=== PATIENT | female | born 1960 | race Caucasian/White ===

== ENCOUNTER → 2017-01-25 | Outpatient (CLI) | payer OTHER | LOC: FIMAGING 07:34 | DX: Z12.31 Encounter for screening mammogram for malignant neoplasm of breast (principal) | CPT/HCPCS: G0202 ==

== ENCOUNTER 2017-07-27 12:51 | Emergency (ER) | payer OTHER ==
--- NOTE | 2017-07-27 13:44 | EDPHY ---
General Time Seen by Provider: 07/27/17 13:31 Narrative: CHIEF COMPLAINT: Fall, knee pain, wrist pain HISTORY OF PRESENT ILLNESS: Patient presents with complaints of left knee pain right wrist pain after fall. She was walking here work today when "my knee buckled, and I fell to the ground." She reports striking her left knee on the ground a bent position. She also brace herself with her right hand and wrist. She complains of moderate to severe pain the left knee with palpation ambulation. She complains of mild pain in the right wrist. No numbness, tingling or weakness. No head strike or loss consciousness. No injury or pain elsewhere. No other associated complaints or modifying factors DOMINANT EXTREMITY: Right-hand dominant ESTABLISHED ORTHOPEDIST: None currently REVIEW OF SYSTEMS: Ten systems reviewed and are negative unless otherwise noted in the HPI PAST MEDICAL HISTORY: Hypertension, orthopedic injuries PAST SURGICAL HISTORY: No recent surgeries SOCIAL HISTORY: Nonsmoker. Lives and works here independently. FAMILY HISTORY: Noncontributory EXAMINATION General Appearance: Alert, no distress Cardiovascular: Left DP and PT pulses 2+. Good signs of perfusion lower extremity. Neurological: A&O, sensory symmetric, strength symmetric Skin: Warm and dry, no rash no petechiae. No purpura. No puncture Extremities: Tenderness of the left knee throughout the joint line. There is negative Jarett and negative drawer test. No instability with valgus or varus stress. No deformity. No patella tenderness. Passive range of motion is symmetric to the right. Right wrist tenderness throughout with no snuffbox tenderness. There is no deformity. Range of motion of the right wrist is symmetric to the left. Psychiatric: Mood and affect normal DIFFERENTIAL DIAGNOSES: Including but not limited to knee sprain, patellar fracture, ACL injury, meniscal injury, wrist sprain, restrained, scaphoid injury MDM: 1:35 p.m. Acute injury involving the left knee and the right wrist. Minimal bony tenderness in each area but she does have some pain with ambulation. X-rays of the wrist and knee were ordered prior to my examination and are currently being performed. No acute distress. Neuro intact distally. 2:20 p.m. X-ray of the right wrist is negative for any acute findings. X-ray of the knee reveals a possible medial tibial plateau fracture. She does have pain and mechanism that could provided this, thus I have ordered CT scan to delineate. I have also ordered Velcro thumb spica for the right wrist to protect the scaphoid. Have re-evaluated the patient discussed this with her and she agrees to proceed. 3:15 p.m. Notified by radiologist Dr. Angelo. CT scan does reveal a posterior tibial plateau fracture with some displacement. I will consult Orthopedics. I have notified the patient of the finding. 3:30 p.m. Case discussed with orthopedist Dr. Novak. He has evaluated the CT scan. Based on the patient's history he would recommend immobilizer with toe-touch minimal weight-bearing as tolerated. Outpatient follow-up early next week. I have notified the patient of this. She will be discharged home with a knee immobilizer. She has crutches at home. She will also follow up with her work comp clinic as this did occur while at work. She has requested tylenol 3 and does not want any stronger narcotic than this. She is discharged in stable condition, neurovascular intact. SUPERVISION: This patient was independently evaluated without direct involvement of or examination by the attending physician. ED Precautions: Worsening pain. Erythema, edema, cyanosis, pallor, paresthesia or anesthesia. - Diagnostics Imaging Results: Imaging Impressions Knee X-Ray 07/27/17 13:11 Impression: Possible posterior medial tibial plateau fracture. If clinically indicated consider CT. Results called to Dr. Aiken. Wrist X-Ray 07/27/17 13:11 Impression: There is no acute fracture identified. If there is a high clinical concern, however, regarding an occult carpal fracture, conservative management and short-term repeat radiographic follow-up in 7-14 days is suggested. - History Smoking Status: Never smoked - Objective Vital Signs: Initial Vital Signs Temperature (C) 98.1 F 07/27/17 12:56 Heart Rate 85 07/27/17 12:56 Respiratory Rate 17 07/27/17 12:56 Blood Pressure 174/86 H 07/27/17 12:56 O2 Sat (%) 96 07/27/17 12:56 O2 Delivery Mode Room Air Allergies/Adverse Reactions: erythromycin base [Erythromycin Base] Allergy (Verified 07/27/17 12:56) Vomiting Home Medications: Medication Instructions Recorded Acetaminophen/Codeine 300/30Mg 1 each PO Q6 PRN #15 tab 07/27/17 [Tylenol #3 (*)] Lisinopril 07/27/17 Departure - Departure Disposition: Home, Routine, Self-Care Clinical Impression: Left knee sprain Qualifiers: Encounter type: initial encounter Involved ligament of knee: unspecified ligament Qualified Code(s): S83.92XA - Sprain of unspecified site of left knee, initial encounter Sprain of right wrist Qualifiers: Encounter type: initial encounter Qualified Code(s): S63.501A - Unspecified sprain of right wrist, initial encounter Left medial tibial plateau fracture Qualifiers: Encounter type: initial encounter Fracture type: closed Qualified Code(s): S82.132A - Displaced fracture of medial condyle of left tibia, initial encounter for closed fracture Condition: Good Instructions: Knee Sprain (ED), Leg Fracture (ED), Wrist Sprain (ED) Additional Instructions: 1. Ice and elevate the extremities often 2. Ibuprofen 400 mg every 6-8 hours as needed for pain and swelling 3. Contact the on-call orthopedist Dr. Novak for outpatient definitive care Referrals: ETHAN HAMEED [Other] - As per Instructions Liz Novak MD [Medical Doctor] - As per Instructions Sean Tatum MD [Medical Doctor] - As per Instructions Stand Alone Forms: Work Comp Follow Up Prescriptions: Acetaminophen/Codeine 300/30Mg [Tylenol #3 (*)] 1 each PO Q6 PRN #15 tab PRN Reason: Pain, Mild
[2017-07-27 16:36] VITALS: BP 154/79
== END 2017-07-27 16:35 | disposition home or self-care (01) ==
DX: S82.132A Displaced fracture of medial condyle of left tibia, initial encounter for closed fracture (principal); S83.92XA Sprain of unspecified site of left knee, initial encounter; S63.501A Unspecified sprain of right wrist, initial encounter; W01.198A Fall on same level from slipping, tripping and stumbling with subsequent striking against other object, initial encounter; Y99.8 Other external cause status; Y93.01 Activity, walking, marching and hiking
CPT/HCPCS: L1830; L3807

== ENCOUNTER 2017-08-11 13:53 | Emergency (ER) | payer OTHER ==
--- NOTE | 2017-08-11 14:26 | EDPHY ---
H & P Time Seen by Provider: 08/11/17 14:00 HPI/ROS: CHIEF COMPLAINT: Left leg pain/rule out DVT HISTORY OF PRESENT ILLNESS: Patient sent to emergency department from occupational health clinic to rule out DVT. Patient had a fall at work at [employer] on the of this month. She has a small posterior tibial plateau fracture that is non operative. She has been using crutches with toe-touch walking. She states she has had pain in the posterior thigh on and off since her injury. She has noticed some swelling as well. Dr. Dwyer at Occup[facility] requested that she get ultrasound to rule out DVT. She denies any numbness, coolness, weakness distal to the injury. She has had no chest pain or shortness of breath. She has no history of thromboembolic disorder. She is a nonsmoker. REVIEW OF SYSTEMS: Negative except per HPI. General Appearance: Alert, no distress. Eyes: Pupils equal and round no icterus Respiratory: No respiratory distress Neurological: Awake, alert, no focal deficits. Skin: Warm and dry, no rashes. Musculoskeletal: Neck is supple nontender. Left leg with ecchymosis consistent with recent injury. Distal pulses sensation and strength intact. Minimal to no swelling appreciated on my exam. No tenderness to the popliteal or femoral vein region. Extremities are symmetrical, full range of motion, no edema. Psychiatric: Patient is oriented X 3, there is no agitation. Medical/surgical history: Hypertension, surgery to left knee 2005. Social history: Nonsmoker, no ETOH or drugs. Not using hormone replacement therapy. Smoking Status: Never smoked Constitutional: Initial Vital Signs Temperature (C) 36.7 C 08/11/17 14:00 Heart Rate 78 08/11/17 14:00 Respiratory Rate 16 08/11/17 14:00 Blood Pressure 138/67 H 08/11/17 14:00 O2 Sat (%) 95 08/11/17 14:00 O2 Delivery Mode Room Air Allergies/Adverse Reactions: erythromycin base [Erythromycin Base] Allergy (Verified 07/27/17 12:56) Vomiting Home Medications: Medication Instructions Recorded Acetaminophen/Codeine 300/30Mg 1 each PO Q6 PRN #15 tab 07/27/17 [Tylenol #3 (*)] Lisinopril 07/27/17 Medical Decision Making - Diagnostics Imaging Results: Imaging Impressions Extremity Venous Study 08/11/17 14:23 Impression: Negative for left lower extremity DVT. Differential Diagnosis: Differential diagnosis includes but is not limited to deep vein thrombosis, continued pain from recent traumatic injury, muscle strain, infection. After evaluation likely pain and swelling related to recent fracture from contusions. Patient is increasing her activity which is also likely to exacerbate sore areas. No evidence of DVT on ultrasound. Patient has appropriate follow-up. Stable for discharge. Departure - Departure Clinical Impression: Leg pain Qualifiers: Laterality: left Qualified Code(s): M79.605 - Pain in left leg Condition: Good Instructions: Contusion in Adults (ED) Additional Instructions: Follow-up with Dr. Dwyer in Occupational Health as needed. See ortho as well. Return to the emergency department for new or concerning symptoms. Referrals: NONE *PRIMARY CARE P,. [Primary Care Provider] - As per Instructions
[2017-08-11 15:44] VITALS: BP 141/76
== END 2017-08-11 15:30 | disposition home or self-care (01) ==
LOC: CED 13:53
DX: M79.605 Pain in left leg (principal); I10 Essential (primary) hypertension
CPT/HCPCS: 93971-PO

== ENCOUNTER → 2018-02-23 | Outpatient (CLI) | payer OTHER | LOC: FIMAGING 07:32 | DX: Z12.31 Encounter for screening mammogram for malignant neoplasm of breast (principal) ==